=== PATIENT | female | born 1980 | race Caucasian/White ===

== ENCOUNTER → 2021-10-07 | Day surgery (SDC) | payer OTHER ==
[~2021-10-07] MED LIST: BAYER CHEWABLE81 MG PO; CLARITIN10 M2 PO; COLACE 100MG C100 MG PO; FERROUS SULFAT325 M2 PO; FLONASE 0.05% N16 GM; FOLIC ACID0.4 MG PO; HYDROCODON-ACE1 EAC2 PO; IBUPROFEN600 MG PO; LORTAB 5-325 M1 EACH PO; NAPROSYN500 MG PO; NEXIUM20 MG PO; PRILOSEC OTC20 MG PO; PRILOSEC10 M1 PO; TRANDATE 100 M100 MG PO; TRANDATE 200 M200 MG PO; ZOFRAN 4 MG TAB4 MG PO
[2021-10-07 11:38] LABS: HEMOGLOBIN 12.6 gm/dl (12.3-15.3); RED BLOOD COUNT 5.21 M/UL (4.00-5.10); WHITE BLOOD COUNT 10.3 K/UL (4.5-11.0)
== END | disposition home or self-care (01) ==
LOC: OR 10:56
PROVIDERS: Obstetrics & Gynecology
DX: O02.1 Missed abortion (principal); I10 Essential (primary) hypertension; G43.909 Migraine, unspecified, not intractable, without status migrainosus; M06.9 Rheumatoid arthritis, unspecified; K21.9 Gastro-esophageal reflux disease without esophagitis; E66.01 Morbid (severe) obesity due to excess calories; Z68.42 Body mass index [BMI] 45.0-49.9, adult; Z79.899 Other long term (current) drug therapy; Z20.822 Contact with and (suspected) exposure to COVID-19; Z87.440 Personal history of urinary (tract) infections
CPT/HCPCS: 76830; 81001; 85025; J1100; J1885; J2250; J2405; J2795; J3010; J7030; J7120